=== PATIENT | female | born 1960 | race Caucasian/White ===

== ENCOUNTER 2023-08-18 17:00 | Outpatient (CLI) | payer BC | END 2023-08-18 17:01 | disposition home or self-care (01) | LOC: SLEEPLAB 17:00 | PROVIDERS: ATTEND Family Medicine | DX: G47.33 Obstructive sleep apnea (adult) (pediatric) (principal); G47.00 Insomnia, unspecified; E66.9 Obesity, unspecified; R06.83 Snoring; R53.83 Other fatigue | CPT/HCPCS: 95800 ==

== ENCOUNTER 2024-12-14 09:00 | Outpatient (CLI) | payer BC | END 2024-12-14 09:01 | disposition home or self-care (01) | LOC: BICCT 09:00 | PROVIDERS: ATTEND Urology | DX: R31.29 Other microscopic hematuria (principal) | CPT/HCPCS: 36415; 74178; 82565 ==